=== PATIENT | female | born 1985 | race Two or more races ===

== ENCOUNTER 2018-10-31 15:14 | Emergency (ER) | payer BC, MEDICAID ==
[~2018-10-31] VITALS: Ht 152.4 cm; Wt 86.0 kg
[2018-10-31 18:34] VITALS: BP 97/61
== END 2018-10-31 18:40 | disposition home or self-care (01) ==
LOC: ED 16:33
DX: E86.0 Dehydration (principal); R10.12 Left upper quadrant pain; R19.7 Diarrhea, unspecified; Z90.49 Acquired absence of other specified parts of digestive tract; Z90.710 Acquired absence of both cervix and uterus; Z85.42 Personal history of malignant neoplasm of other parts of uterus; F17.200 Nicotine dependence, unspecified, uncomplicated
CPT/HCPCS: 36415; 74018; 74177; 80053; 81003; 83690; 85025; 93005; 96361; 96374; 96375; 96376; 99284; J2270; J2405; J3490; J7030; Q9967

== ENCOUNTER 2019-05-23 08:31 | Emergency (ER) | payer BC, OTHER ==
[~2019-05-23] VITALS: Ht 152.4 cm; Wt 81.1 kg
[2019-05-23 08:39] VITALS: BP 129/65
--- NOTE | 2019-05-23 09:29 | NUR ---
PT RESTING IN BED. DENIES ANY NEEDS OR CONCERNS AT THIS TIME.
== END 2019-05-23 10:27 | disposition home or self-care (01) ==
LOC: ED 10:15
DX: B34.9 Viral infection, unspecified (principal); F17.210 Nicotine dependence, cigarettes, uncomplicated; Z90.49 Acquired absence of other specified parts of digestive tract; Z90.710 Acquired absence of both cervix and uterus
CPT/HCPCS: 71046; 87081; 87880; 99284

== ENCOUNTER 2020-06-13 09:48 | Emergency (ER) | payer SELFPAY ==
[~2020-06-13] VITALS: Ht 152.4 cm; Wt 74.4 kg
--- NOTE | 2020-06-13 10:24 | NUR ---
PT C/O LEFT SIDE CHEST PAIN THAT RADIATES DOWN LEFT ARM AND MID BACK WITH NAUSEA, NO VOMITING. PT STATES IT STARTED 2 DAYS AGO. PT HAS A HX OF TN WHEN SHE WAS 19. PT ALSO HAVING SHORTNESS OF BREATH AND INCREASED PAIN WITH INSPIRATION.
[2020-06-13] MEDS ORDERED: KETOROLAC 30 MG/1 ML IVPush ONE (11:00)
[2020-06-13] MEDS ORDERED: SODIUM CHLORIDE FLUSH 10ML SYR IVF ONE (11:00)
[2020-06-13] MEDS ORDERED: KETOROLAC 30 MG/1 ML ONE (11:09)
[2020-06-13 11:21] LABS: BASOPHILS % (AUTO) 1 % (0-1); EOSINOPHILS % (AUTO) 1 % (1-7); LYMPHOCYTES % (AUTO) 29 % (22-44); MEAN CORPUSCULAR HEMOGLOBIN 30.7 pg (27.0-34.8); MEAN PLATELET VOLUME 7.5 fL (7.4-10.4); MONOCYTES % (AUTO) 6 % (2-9); NEUTROPHILS % (AUTO) 64 % (42-75); PLATELET COUNT 293 x10^3/uL (130-400); RED BLOOD COUNT 4.46 x10^6/uL (3.82-5.3); RED CELL DISTRIBUTION WIDTH 12.8 % (9.6-15.2)
[2020-06-13 11:23] LABS: MD NO
[2020-06-13 11:28] LABS: ALANINE AMINOTRANSFERASE 11 U/L (12-78); ALBUMIN 3.9 g/dL (3.4-5.0); ANION GAP 3 mmol/L (5-15); CALCIUM 8.7 mg/dL (8.5-10.1); CHLORIDE 108 mmol/L (98-107); CREATININE 0.62 mg/dL (0.55-1.02)
[2020-06-13 11:32] LABS: ALKALINE PHOSPHATASE 63 U/L (45-117); BILIRUBIN,TOTAL 0.3 mg/dL (0.2-1.0); TOTAL PROTEIN 7.5 g/dL (6.4-8.2); TROPONIN I < 0.015 ng/mL (0.000-0.045)
[2020-06-13 12:57] VITALS: BP 104/56
== END 2020-06-13 13:01 | disposition home or self-care (01) ==
LOC: ED 11:53
DX: R07.89 Other chest pain (principal); R06.02 Shortness of breath; R11.0 Nausea; R94.31 Abnormal electrocardiogram [ECG] [EKG]
CPT/HCPCS: 36415; 71046; 80053; 84484; 85025; 85379; 93005; 96374; 99285; J1885